=== PATIENT | male | born 1970 | race Caucasian/White ===

== ENCOUNTER 2020-11-22 12:42 | Outpatient (CLI) | payer OTHER ==
[~2020-11-22 12:42] MED LIST: Magnevist 469MG/ML 20 ML VIAL ONE
[2020-11-22] MEDS ORDERED: EPINEPHrine 1 MG/ML AMP ONE (13:25)
[2020-11-22] MEDS ORDERED: Gadobenate Dimeglumine 529 MG/1 ML (20ML VIAL) ONE (13:25)
[2020-11-22] MEDS ORDERED: Iopamidol 300 61% 50 ML VIAL FS ONE (13:25)
[2020-11-22] MEDS ORDERED: Lidocaine 1% PF 10 ML AMP ONE (13:25)
== END 2020-11-22 12:43 | disposition home or self-care (01) ==
LOC: RAD 12:42 → EDSTATUS 13:00
PROVIDERS: ATTEND Orthopaedic Surgery
DX: M25.522 Pain in left elbow (principal); S46.911A Strain of unspecified muscle, fascia and tendon at shoulder and upper arm level, right arm, initial encounter; M70.21 Olecranon bursitis, right elbow; M77.8 Other enthesopathies, not elsewhere classified
CPT/HCPCS: 24220; A9577; A9579; J0171; J2001; Q9967

== ENCOUNTER 2020-12-10 16:53 | Outpatient (CLI) | payer OTHER ==
[2020-12-11 01:20] LABS: SARS-CoV-2 PCR by NAA Not Detected (NotDetected)
== END 2020-12-10 16:54 | disposition home or self-care (01) ==
LOC: LABBT 16:53
PROVIDERS: ATTEND Orthopaedic Surgery
DX: Z01.818 Encounter for other preprocedural examination (principal); S46.312A Strain of muscle, fascia and tendon of triceps, left arm, initial encounter; Z20.822 Contact with and (suspected) exposure to COVID-19
CPT/HCPCS: 87635; 93005; 93010; U0003; U0005

== ENCOUNTER 2020-12-12 06:11 | Day surgery (SDC) | payer OTHER ==
[2020-12-11 15:30] VITALS: BMI 32.8
[2020-12-12] MEDS ORDERED: Midazolam HCl 2 mg/2 ml Vial ONE (06:58)
[2020-12-12] MEDS ORDERED: Sodium Chloride 0.9% 10 ML ONE (06:58)
[2020-12-12] MEDS ORDERED: Fentanyl 100 MCG/2 ML VIAL ONE ×2 (06:58→08:02)
[2020-12-12] MEDS ORDERED: Ropivacaine 0.5% HCl/PF (150 MG/30 ML VIAL) ONE ×2 (06:58→07:52)
[2020-12-12] MEDS ORDERED: Promethazine HCl 25 MG/ML VIAL IM PRN (07:45)
[2020-12-12] MEDS ORDERED: HYDROcodone/Acetaminophen 5/325 mg Tablet PO PRN ×2 (07:45)
[2020-12-12] MEDS ORDERED: traMADol HCl 50 MG TAB PO PRN ×2 (07:45)
[2020-12-12] MEDS ORDERED: Ondansetron PF 4 MG/2 ML Vial IVP PRN (07:45)
[2020-12-12] MEDS ORDERED: Ropivacaine 0.2% 550 ML 550 ML NERVE BLCK SCH (07:45)
[2020-12-12] MEDS ORDERED: Ketorolac Tromethamine 30 MG/ML VIAL IVP PRN (07:45)
[2020-12-12] MEDS ORDERED: Zolpidem Tartrate 5 MG TAB PO PRN (07:45)
[2020-12-12] MEDS ORDERED: PROPOFOL 200 MG/20 ML VIAL ONE (07:52)
[2020-12-12] MEDS ORDERED: Ropivacaine 2% HCl/PF (20 MG/10 ML VIAL) ONE (07:52)
[2020-12-12] MEDS ORDERED: ePHEDrine Sulfate 50 MG/10 ML VIAL ONE (07:52)
[2020-12-12] MEDS ORDERED: PHENYLEPHRINE-NS 100 MCG/ML 10 ML SYRINGE ONE (07:52)
[2020-12-12] MEDS ORDERED: Rocuronium Bromide 10 MG/ML (10ML VIAL) ONE (07:52)
[2020-12-12] MEDS ORDERED: Dexamethasone 20 MG/5 ML VIAL ONE (07:52)
[2020-12-12] MEDS ORDERED: Ondansetron PF 4 MG/2 ML Vial ONE (07:52)
== END 2020-12-12 11:37 | disposition home or self-care (01) ==
LOC: SDC 06:11
PROVIDERS: ATTEND Orthopaedic Surgery
PROC: 3E0T3BZ Introduction of Anesthetic Agent into Peripheral Nerves and Plexi, Percutaneous Approach (ICD-10-PCS; principal; 2020-12-12)
PROC: 0LM40ZZ Reattachment of Left Upper Arm Tendon, Open Approach (ICD-10-PCS; principal; 2020-12-12)
DX: S46.312A Strain of muscle, fascia and tendon of triceps, left arm, initial encounter (principal); G89.18 Other acute postprocedural pain; I10 Essential (primary) hypertension; E78.5 Hyperlipidemia, unspecified; R73.03 Prediabetes; Z79.899 Other long term (current) drug therapy
CPT/HCPCS: A4306; C1713; J0690; J1100; J2250; J2405; J2704; J2795; J3010

== ENCOUNTER 2021-05-28 18:02 | Outpatient (CLI) | payer OTHER ==
[2021-05-28 18:26] LABS: #Eosinphils 0.2 10x3/uL (0.0-0.5); #Monocytes 0.7 10x3/uL (0.0-1.1); #Neutrophils 4.6 10x3/uL (1.5-8.4); %Basophils 0.4 % (0.0-2.0); %Eosinophils 1.7 % (0.0-6.0); %Lymphocytes 38.9 % (18.0-47.0); %Monocytes 7.3 % (0.0-10.0); %Neutrophils 51.5 % (40.0-75.0); Hemoglobin 15.3 g/dL (13.5-17.5); Mean Corpuscular HGB CONC 33.8 g/dL (32.0-36.0); Mean Corpuscular Volume 85.6 fl (81.2-95.1); Mean Platelet Volume 9.1 fl (7.4-10.4); Platelet Count 330 10x3/uL (150-450); RBC Distribution Width 11.6 % (11.5-14.5); Red Blood Cell (RBC) Count 5.28 10x6/uL (4.32-5.72); White Blood Cell (WBC) Count 8.9 10x3/uL (3.5-10.5)
[2021-05-29 00:53] LABS: SARS-CoV-2 PCR by NAA Not Detected (NotDetected)
== END 2021-05-28 18:03 | disposition home or self-care (01) ==
LOC: LABBT 18:02
PROVIDERS: ATTEND Surgery
DX: Z01.812 Encounter for preprocedural laboratory examination (principal); K42.9 Umbilical hernia without obstruction or gangrene; Z20.822 Contact with and (suspected) exposure to COVID-19
CPT/HCPCS: 85025; U0003; U0005

== ENCOUNTER 2021-05-31 06:04 | Day surgery (SDC) | payer OTHER ==
[2021-05-30 10:12] VITALS: BMI 32.2
[2021-05-31] MEDS ORDERED: Fentanyl 100 MCG/2 ML VIAL ONE (06:13)
[2021-05-31] MEDS ORDERED: ceFAZolin 2 GM/DEX 5% 100 ML BAG ONE (06:44)
[2021-05-31] MEDS ORDERED: Bupivacaine 0.25% HCL 30 ML VIAL ONE (06:52)
[2021-05-31] MEDS ORDERED: Lidocaine 1% w/Epinephrine 1:100K 20 ML VIAL ONE (06:52)
[2021-05-31] MEDS ORDERED: Midazolam HCl 2 mg/2 ml Vial ONE (07:12)
[2021-05-31] MEDS ORDERED: Famotidine/PF 20 mg/2ml Vial ONE ×2 (07:13)
[2021-05-31] MEDS ORDERED: Ondansetron PF 4 MG/2 ML Vial ONE (07:49)
[2021-05-31] MEDS ORDERED: Dexamethasone 20 MG/5 ML VIAL ONE (07:49)
[2021-05-31] MEDS ORDERED: Lidocaine 1% PF 5 ML VIAL ONE (07:49)
[2021-05-31] MEDS ORDERED: PROPOFOL 200 MG/20 ML VIAL ONE (07:49)
[2021-05-31] MEDS ORDERED: HYDROcodone/Acetaminophen 5/325 mg Tablet ONE (09:44)
== END 2021-05-31 10:38 | disposition home or self-care (01) ==
LOC: SDC 06:04
PROVIDERS: ATTEND Surgery
PROC: 0WUF0JZ Supplement Abdominal Wall with Synthetic Substitute, Open Approach (ICD-10-PCS; principal; 2021-05-31)
DX: K42.9 Umbilical hernia without obstruction or gangrene (principal); I10 Essential (primary) hypertension; E78.5 Hyperlipidemia, unspecified; R73.03 Prediabetes; Z79.899 Other long term (current) drug therapy; Z88.8 Allergy status to other drugs, medicaments and biological substances
CPT/HCPCS: J1100; J2250; J2405; J2704; J3010; S0020; S0028

== ENCOUNTER 2023-03-31 18:00 | Outpatient (CLI) | payer BC | END 2023-03-31 18:01 | disposition home or self-care (01) | LOC: SLEEPLAB 18:00 | PROVIDERS: ATTEND Family Medicine | DX: G47.33 Obstructive sleep apnea (adult) (pediatric) (principal); R06.83 Snoring; I10 Essential (primary) hypertension; G47.00 Insomnia, unspecified | CPT/HCPCS: 95800 ==